=== PATIENT | female | born 1965 | race Caucasian/White ===

== ENCOUNTER 2021-03-13 12:57 | Outpatient (REF) | payer MEDICAID, SELFPAY ==
--- NOTE | ~2021-03-13 | MM_ITS ---
EXAMINATION: MM SCREENING DIGITAL BREAST TOMOSYNTHESIS, BILATERAL CLINICAL INFORMATION: Screening. Asymptomatic. Status post therapeutic aspiration cysts right breast lower inner quadrant 07/18/2019. The lifetime risk of breast cancer based on the Tyrer-Cuzick Model is 16%. COMPARISON: Mammography: 11/18/2018, 07/25/2016; ultrasound right breast 11/18/2018. TECHNIQUE: Digital mammography is performed in craniocaudal and mediolateral oblique views along with computer-aided detection (CAD). Digital breast tomosynthesis is performed in implant-displaced craniocaudal and implant-displaced mediolateral oblique views along with computer-aided detection (CAD). Synthesized 2D images are generated from the tomosynthesis. FINDINGS: There are scattered areas of fibroglandular density (ACR BI-RADS breast composition Category b). There are bilateral implants. Implant contours are smooth and similar to prior studies. Right breast fibrocystic changes lower inner quadrant are decreased from prior studies. Again, there are regional punctate calcifications in the right lower inner quadrant similar to prior studies. Neither breast shows interval significant mass or architectural abnormality or abnormal calcifications. The axilla and skin contours are unremarkable. No significant changes. MM/MM tomosynthesis screen imp BI IMPRESSION: No mammographic evidence of malignancy. ASSESSMENT: BI-RADS 2: Benign RECOMMENDATION: Routine annual mammography screening. This patient's information was entered into a reminder system with a target due date for their next mammogram.
== END 2021-03-13 12:58 | disposition home or self-care (01) ==
LOC: HO.MAMMO 12:57
PROVIDERS: Visit Provider Physician Assistant
DX: Z12.31 Encounter for screening mammogram for malignant neoplasm of breast (principal)
CPT/HCPCS: 77063; 77067

== ENCOUNTER 2022-07-03 08:46 | Outpatient (REF) | payer OTHER, SELFPAY ==
--- NOTE | ~2022-07-03 | MM_ITS ---
EXAMINATION: MM DIAGNOSTIC DIGITAL BREAST TOMOSYNTHESIS, BILATERAL Targeted right breast ultrasound. CLINICAL INFORMATION: Right breast lump medially which has been present for 7 years and is painful. Patient states that it actually appears smaller than at time of last study. The lifetime risk of breast cancer based on the Tyrer-Cuzick Model is 17.5%. COMPARISON: Mammography: 03/13/2021 and studies dating back to 06/29/2012. TECHNIQUE: Digital mammography is performed in craniocaudal and mediolateral oblique views. Digital breast tomosynthesis is performed in implant-displaced craniocaudal and implant-displaced mediolateral oblique views. Synthesized 2D images are generated from the tomosynthesis. Computer-aided detection (CAD) is performed for this exam. Right breast spot magnification views in craniocaudal and 90 degree mediolateral projections. Targeted right breast ultrasound. FINDINGS: There are scattered areas of fibroglandular density (ACR BI-RADS breast composition Category b). The implant contours are unremarkable. There is a stable parenchymal pattern of the left breast without new abnormal dominant mass or suspicious grouping of microcalcifications. Imaging of the right breast demonstrated calcifications about the medial aspect for which spot magnification views were performed. These calcifications on magnification imaging appear stable. There are multiple circumscribed densities seen in the region of palpable abnormality which are well-circumscribed. Ultrasound evaluation about the medial aspect of the right breast where patient states palpable abnormality is. Multiple simple and minimally complex cysts are present in this location with the largest measuring approximately 7 x 6 x 8 mm in size. No suspicious solid mass identified. No edematous change within the parenchyma is seen. Results are discussed with the patient at time of visit. MM/MM tomosynthesis diag imp BI IMPRESSION: 1. There are no significant changes from prior study. 2. Palpable abnormality corresponds to a region of cysts as described. ASSESSMENT: BI-RADS 2: Benign RECOMMENDATION: 1. Patient should be managed based on the clinical impression. Decision to proceed with biopsy should be based on clinical grounds and degree of clinical concern. 2. Otherwise, routine annual screening mammography. This patient's information was entered into a reminder system with a target due date for their next mammogram.
== END 2022-07-03 08:47 | disposition home or self-care (01) ==
LOC: HO.MAMMO 08:46
PROVIDERS: PCP Nurse Practitioner Family; Visit Provider Nurse Practitioner Family
DX: N64.4 Mastodynia (principal); R92.1 Mammographic calcification found on diagnostic imaging of breast
CPT/HCPCS: 76642; 77062; 77066

== ENCOUNTER → 2024-01-21 10:30 | Outpatient (BNV) | payer OTHER, SELFPAY | PROVIDERS: PCP Nurse Practitioner Family; Visit Provider Internal Medicine | DX: Z12.31 Encounter for screening mammogram for malignant neoplasm of breast (principal) | CPT/HCPCS: 77063; 77067 ==

== ENCOUNTER 2024-01-21 10:58 | Outpatient (REF) | payer OTHER, SELFPAY ==
--- NOTE | ~2024-01-21 | MM_ITS ---
EXAMINATION: MM SCREENING DIGITAL BREAST TOMOSYNTHESIS, BILATERAL CLINICAL INFORMATION: Screening. Asymptomatic. COMPARISON: Mammography: Comparison is made with relevant avialable priors. TECHNIQUE: Digital mammography is performed in craniocaudal and mediolateral oblique views along with computer-aided detection (CAD). Digital breast tomosynthesis is performed in implant-displaced craniocaudal and implant-displaced mediolateral oblique views along with computer-aided detection (CAD). FINDINGS: The breasts are heterogeneously dense, which may obscure small masses (ACR BI-RADS breast composition Category c). Bilateral retropectoral implants are stable appearing. Circumscribed oval masses medial right breast previously demonstrated to be simple cysts on ultrasound. There are no significant masses, abnormal calcifications, or other abnormalities. MM/MM tomosynthesis screen imp BI IMPRESSION: There are no significant changes from prior study. ASSESSMENT: BI-RADS BI-RADS 2 - Benign Findings RECOMMENDATION: Routine annual mammography screening. 1 year F/U This patient's information was entered into a reminder system with a target due date for their next mammogram. Electronically signed by: Mahsa Tony DO 01/21/2024 12:19 PM [facility]
== END 2024-01-21 10:59 | disposition home or self-care (01) ==
LOC: HO.MAMMO 10:58
PROVIDERS: PCP Nurse Practitioner Family; Visit Provider Nurse Practitioner Family
DX: Z12.31 Encounter for screening mammogram for malignant neoplasm of breast (principal)
CPT/HCPCS: 77063; 77067

== ENCOUNTER 2025-01-26 15:17 | Outpatient (REF) | payer OTHER, SELFPAY ==
--- OUTSIDE RECORDS SUMMARY | 2025-01-27 03:52 | XMS_ITS ---
Author Name [facility] Organization Unknown Results Test Name/Text Value Interpretation Date Range Source Glucose Bld-mCnc 112.0 mg/dL 10/05/2024 70 - 199 [facility] History of Medication Use Medication Directions Dispensed Refills Start Date End Date Stat us cephalexin (KEFLEX) 500 mg capsule Take 1 capsule (500 mg total) by mouth 4 (four) times a day for 7 days. 10/05/2024 active Allergies Allergen Reaction Severity Comment Documented Date Source Statu s MORPHINE SHORTNESS OF BREATH 03/14/2020 [facility] active Problems Problem Status Onset Date Problem Type Date of Resoluti on Source Toe pain, right active EncounterDiagnosisAct [facility] Encounters Encounter Type Encounter Reason Primary Diagnosis Location Date Emergency RIGHT FOOT TOE PAIN Pain in right toe(s) [facility] 10/05/2024 Ambulatory [facility] 04/06/2024 Care Team Organization Name Specialty Phone Email Start Date End Da te [facility] 10/06/2024 [facility] 10/05/2024 [place] 04/07/2024 [facility] 04/07/2024
--- OUTSIDE RECORDS SUMMARY | 2025-01-27 03:52 | XMS_ITS | Clinical Summary ---
Author Organization [facility] Address [address] [place] [address] Care Team Providers Care Tag Meter Operator Name Role Phone Unavailable Primary Care Provider Unavailabl e Allergies Active Allergy Reactions Criticality Noted Date Comments Morphine Shortness Of Breath High 03/14/2020 Medications Medication Sig Dispensed Refills Start Date End Date Status levothyroxine (SYNTHROID, LEVOXYL) tablet 75 mcg TAKE 1 TABLET BY MOUTH EVERY DAY IN THE MORNING 0 02/09/2020 Active estradiol (ESTRACE) 2 MG tablet Take 2 mg by mouth daily. 0 Active oxyCODONE-acetaminoph en (PERCOCET) 5-325 MG per tablet Take 1 tablet by mouth every 6 (six) hours as needed for up to 20 doses. 20 tablet 0 03/18/2020 Active Active Problems Problem Noted Date Diagnosed Date Small bowel obstruction 03/14/2020 SBO (small bowel obstruction) 03/05/2020 Immunizations Name Administration Dates Next Due Influenza Quad (Fluarix/Fluz one/FluLaval) 0.5mL (SD-IIV4) 03/09/2020 Family History Medical History Relation Name Comments Heart disease Maternal Grandmother Cancer Mother Breast cancer Heart disease Mother Relation Name Status Comments Maternal Grandmother Mother Alive Social History Tobacco Use Types Packs/Day Years Used Date Smoking Tobacco: Never Smokeless Tobacco: Never Alcohol Use Standard Drinks/Week Comments Yes 0 (1 standard drink = 0.6 oz pur e alcohol) Socially. Sex and Gender Information Value Date Recorded Sex Assigned at Female 03/05/2020 6:07 AM EST Gender Identity Female 03/05/2020 6:07 AM EST Sexual Orientation Not on file Last Filed Vital Signs Vital Sign Reading Time Taken Comments Blood Pressure 136/87 03/18/2020 9:03 AM EST Pulse 69 03/18/2020 9:03 AM EST Temperature 36.7 C (98.1 F) 03/18/2020 9:03 AM EST Respiratory Rate 18 03/18/2020 9:03 AM EST Oxygen Saturation 96% 03/18/2020 9:03 AM EST Inhaled Oxygen Concentration - - Weight 61.2 kg (134 lb 14.7 oz) 021 11:20 PM EST Height 157.5 cm (5' 2 ) 03/15/2020 9:55 AM EST Body Mass Index 24.68 03/15/2020 9:55 AM EST Plan of Treatment Health Maintenance Due Date Last Done Comments Hepatitis B Vaccines (1 of 3 - 3-dose series) 1966 Hepatitis C Screening 1966 COVID-19 Vaccine (#1) 03/03/1967 Depression Screening 1978 BMI Counseling 1984 Preventative Health Evaluation 1984 DTap / Tdap / Td (1 - Tdap) 1985 Cervical Cancer Screening (P ap Smear) 09/02/1987 Colon Cancer Screening (Colonoscopy) 09/02/2011 Breast Cancer Screening (Mammogram) 2016 Shingrix-Zoster Vaccine (1 of 2) 2016 Influenza Vaccine (#1) 2024 03/09/2020 Pneumococcal Vaccine Aged Out No long er eligible based on patient's age to complete this topic RSV Ped < 20 months Aged Out No longe r eligible based on patient's age to complete this topic Goals Goal Patient Goal Type Associated Problems Recent Progress Patient-Stated? Author Patient will be complaint with medical appointments and orders Chronic Care Management No Peyman Kwong RN Patient will adhere to treatment plan Chronic Care Management No Peyman Kwong RN Advance Directives For more information, please contact: [phone] Latest Code Status on File Code Status Date Activated Date Inactivated Comments Full Code 03/15/2020 11:11 AM 03/18/2020 9:04 PM This c ode status was ascertained in the following way: discussion with patient . Code Status History Code Status Date Activated Date Inactivated Comments Full Code 03/14/2020 11:21 AM 03/15/2020 11:11 AM This code status was ascertained in the following way: discussion with patient . Full Code 03/05/2020 12:31 PM 03/09/2020 7:47 PM Th is code status was ascertained in the following way: discussed .
--- OUTSIDE RECORDS SUMMARY | 2025-01-27 03:52 | XMS_ITS | Clinical Summary ---
Author Organization [facility] Address [address] [address] Phone Care Team Providers Care Measurement Advisor Name Role Phone Tab Mojica MD Unavailable [phone] Karen Qiu NP Primary Care Provider Allergies No known active allergies Medications ferrous sulfate (IRON ORAL) Take by mouth daily. Active neomycin-polymy shruthi B-hydrocortison e (CORTOMYCIN) 3.5-10,000-1 mg/mL-unit/mL-% otic suspension 3 drops by Each Ear route 4 (four) times a day. 10 mL 1 2 Active Additional Information Patient not taking.Reported on 03/15/2022 levothyroxine (SYNTHROID, LEVOTHROID) 75 MCG tabletIndicatio ns:Hypothyroidi sm, unspecified type Take 1 tablet (75 mcg total) by mouth every morning. 90 tablet 3 2 Active fluorouraciL (EFUDEX) 5 % cream Efudex 5 % topical cream APPLY TO NOSE STARTING TWICE A WEEK INCREASING TO TWICE A DAY TOLERATED Active triamcinolone acetonide 0.1 % cream triamcinolone acetonide 0.1 % topical cream APPLY TO CHEST TWICE A DAY NEEDED FOR ITCHING Active estradioL (ESTRACE) 1 MG tablet estradiol 1 mg tablet TAKE 1 TABLET BY MOUTH EVERY DAY Active ALPRAZolam (XANAX) 0.5 MG tabletIndicatio ns:Anxiety 1-2 times Daily as needed 45 tablet 2 Active diazoxide (PROGLYCEM) 50 mg/mL suspensionIndic ations:Hypoglyc emia Take 2 mL (100 mg total) by mouth every 12 (twelve) hours. 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 I did discuss other possible options such as Arcabose, and octreotide but octreotide is not a very good choice. I would prefer to use diazoxide first. Based on her body weight using 2 mg every 12 hours she should be taking approximately 26 mL which is less than an ounce. She states that she only has symptoms after dinner possibly because is her biggest meal. I advised her to take it 1 hour prior to the meal. I did review that this medication action time usually is 1 hour in order to increase the glucose levels. I did inform her that it works by inhibiting insulin secretion. I did reviewed that is not associated with weight gain. If the medication does not work within 3 weeks then it should be discontinued but my feeling is that she is only going to be using it once a day and if is not working she should possibly increase it to twice a day or possibly increase the dose we started at a very small dose 2 mg/kg and can go up anywhere up to 15 mg/kg. I will give the patient a follow-up appointment in 3 months time. However she can contact me through the patient portal if she has any questions or concerns. Assessment & Plan (03/05/2022 5:55 PM EST): This patient reports postprandial hypoglycemia. Fasting lab work shows that she does not have fasting hyperglycemia but has suppressed levels of insulin, proinsulin with normal reference range C-peptide. This can be associated with the use of analog insulin administration. However our insulin assay does not measure analog insulin so I cannot confirm or disprove this possibility. Unfortunately there are so many variables that makes this case quite complex. For instance the glucose tolerance assay that was used was not ideal. The tubes using glucose collection can still result in red blood cell digestion of glucose which can result in low glucose levels. It does not help that the specimens were run 6 hours after collection. However, the patient states that she was symptomatic after completing the study. So if this is truly the case then I will say that the patient has early functional alimentary hypoglycemia. The treatment is small frequent meals with high complex carbohydrates and protein intake with elimination of simple sugars and fructose. However the patient states that she is already doing this. The symptoms of hypoglycemia and this type of condition can be distressing but they are not typically dangerous. I suggested to the patient that she can try diazoxide to see if it does improve symptoms. If it does not improve her symptoms of hypoglycemia then the best thing to do is to continue what she is currently doing. Feared complaint without diagnosis 09/07/2021 Assessment & Plan (02/05/2022 9:32 AM EST): The patient has symptoms of hypoglycemia but I did not find any evidence based on the biochemical studies that I did. Even the glucose tolerance test did not show hypoglycemia or for that matter hyperglycemia which was what I was actually looking for because I expected the reasons for hypoglycemia to be hyperinsulinemia in cases of patients with prediabetes. But this does not seem to be the case. In any case she would like to have a 3-hour glucose tolerance test and I requested this. I have not given her follow-up appointment if there is any issues then we can communicate through patient portal and reschedule if required. Assessment & Plan (09/07/2021 11:25 AM EDT): This is a patient develops drowsiness, exhaustion, near loss of consciousness for an hour to 1 hour after eating. Could she be producing too much insulin in response to glucose. Point I will get baseline lab work. I am also going to request glucose tolerance test and I am requesting insulin level at baseline then 1 hour and 2 hours after to see if there is an elevated insulin level which we should see after glucose administration but I would like to see what the glucose level is after eating to see if she is developing hypoglycemia. Encounter for routine adult health examination with abnormal findings 04/24/2021 Assessment & Plan (04/24/2021 6:55 AM EST): Pap: no longer indicated s/p hysterectomy Mammogram: utd per pt. Will request most recent results from [facility] Cscope: utd per pt. Completed about 2 yrs ago at [facility]. Will request records Labs: cbc/cmp/a1c/lipids/tsh ordered Immunizations: tdap given today. Next due 2031. Declines flu shot. Follow up annually for CPE Skin lesion 04/24/2021 Assessment & Plan (04/24/2021 6:57 AM EST): New problem. Developed non healing ulcer of the nose and chest after sunburn this past summer. Features concerning for BCC. -will place urgent referral to [facility]. 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 Doing well since the surgery and feels her GI symptoms have resolved Hypothyroidism 09/12/2019 Assessment & Plan (04/24/2021 6:49 AM EST): Chronic and stable. euthymic on 75mcg of levothyroxine -recheck TSH Assessment & Plan (02/09/2020 3:57 PM EST): Clinically hypothyroid with TSH of 3.07. reviewed proper way of taking medication. Feel a lot of her symptoms (joint pain, fatigue, hair loss, dry skin, constipation) may be 2/2 hypothyroidism. -will do trial of increasing levothyroxine to 75mcg daily. -reviewed sx of hyperthyroidism and that she should call if present -recheck TSH in 6-8 weeks and she agrees with plan. Assessment & Plan (09/12/2019 5:13 PM EDT): Clinically hypothyroid and has been >1 year since last had her TSH checked -labs ordered Polyarthralgia 09/12/2019 Assessment & Plan (02/09/2020 3:59 PM EST): Pain in the hips, shoulders, knees, fingers and toes along with some bone pain along both upper arms. Negative RF and KAITLYNN, crp slightly elevated. -will do trial of increasing levothyroxine. Will recheck TSH with PTH in 6-8 weeks -will refer to rheumatology for further evaluation of possible arthritis vs fibromyalgia Assessment & Plan (09/12/2019 5:12 PM EDT): Pain in the hips, shoulders, fingers and toes along with some bone pain along both upper arms. -will order labs to eval for metabolic cause including possibly hyperparathyroidism given the bone pain -would also consider referral to rheumatology pending those lab results and she agrees with this plan Fatigue 09/12/2019 Assessment & Plan (09/12/2019 5:14 PM EDT): -Will order labs to check for metabolic causes -will also refer to sleep medicine given chronicity and she has never had evaluation previously. Anxiety 09/12/2019 Assessment & Plan (04/24/2021 6:53 AM EST): Chronic and stable. Had previously been following with psychiatrist in [place].. Masspat checked and is congruent with history. -will refill her alprazolam 0.5mg. taking 1/2 tab po 1-2x daily Assessment & Plan (09/12/2019 5:17 PM EDT): Following with psychiatrist in [place]. Masspat checked and is congruent with history. Confirmed previous script and patient has been trying to get refills through psychiatrists office. -will refill her xanax 0.5mg po daily prn today -she will plan to follow up with her psychiatrist when able Ear discharge of both ears 09/12/2019 Assessment & Plan (02/09/2020 3:57 PM EST): Will do trial of cortisporin QID in both ears for the next week for suspected otitis externa. Assessment & Plan (09/12/2019 5:18 PM EDT): Unfortunately, we did not have a chance to address this concern today. 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 Reports syncope on several occasions. lowest glucose measured in the ED was 13. Discussed continuing to avoid foods with large amounts of simple sugars and agree with referral to endocrinology to w/u other causes -referral to Dr. Sandhu placed Menopausal syndrome 07/29/2019 Assessment & Plan (04/24/2021 6:52 AM EST): Chronic and improved with oral estradiol -continues to follow with Madhavi SAINZ for mgmt Assessment & Plan (09/12/2019 5:16 PM EDT): Following with Dr. Maldonado for mgmt of estrogen. Did review his most recent note that had wanted to wait prior to ordering further tests but will reach out to see if he is ok to add progesterone and testosterone labs as requested by patient. Urinary incontinence due to urethral sphincter i ncompetence 01/12/2018 Hemorrhoid 01/12/2018 Lack of sexual fulfillment 01/12/2018 Complication of procedure 01/12/2018 Overview (01/12/2018): Nerve damage to upper vagina and bladder following total hysterectomy Immunizations Immunization Administration Dates Next Due INFLUENZA, SPLIT VIRUS, TRIV ALENT W/ PRESERVATIVE IM 05/18/2019,01/03/2017,02/28/2016,2015,12/08/2009,08/22/2009 Influenza Quadrivalent Prese rvative Free IM 03/09/2020 Tdap 04/23/2021,03/21/2011,03/10/2011 Tetanus toxoid, unspecified formulation 08/22/2004 Family History Medical History Relation Comments Breast cancer Mother Relation Status Comments Father Maternal Grandfather Maternal Grandmother Mother Alive Social History Tobacco Use Types Packs/Day Years Used Date Smoking Tobacco: Former Cigarettes 0.3 11 1 978 - 1989 Smokeless Tobacco: Never Tobacco Cessation:Counseling Given: Not Answered Alcohol Use Standard Drinks/Week Comments Yes 0 (1 standard drink = 0.6 oz pur e alcohol) socially Child or Family Care Answer Date Record ed Do you have problems with on e of the following making it difficult for you to work, study, or receive health care? No 04/23/2021 Education Answer Date Recorded Are you interested in more education? Not on yohannes e 05/06/2023 Are you concerned about learning? Not on file 05/06/2023 No 05/06/2023 No 05/06/2023 Food Answer Date Recorded Within the past 6 months we worried whether our food would run out before we got money to buy more. Never True 04/23/2021 Within the past 6 months the food we bought just didn't last and we didn't have enough money to get more. Never True Residential Stability Answer Date Recor ded What is your housing situation today? I have ash melissa 04/23/2021 How many times have you move d in the past 12 months? Zero (I did not move) 04/23/2021 Paying for Meds Answer Date Recorded Do you have trouble paying for medicines? No 04/23/2021 Paying Utility Bills Answer Date Record ed Do you have trouble paying your heating or elect ricity bill? Yes 04/23/2021 Transportation Answer Date Recorded Has the lack of transportati on kept you from medical appointments or from getting medications? No 04/23/2021 Unemployment Answer Date Recorded Are you currently unemployed or working on a part-time or temporary basis, and looking for work? No 04/23/2021 Digital Access Answer Date Recorded No 08/06/2022 No 08/06/2022 Reliable internet access at home? Not on file 08/06/2022 Device with a working camera? Not on file Comments Unknown Sex and Gender Information Value Date Recorded Sex Assigned at Female 07/27/2019 2:57 PM EDT Legal Sex Female 10:04 AM EDT Gender Identity Female 07/27/2019 2:57 PM EDT Sexual Orientation Straight 07/27/2019 2: 57 PM EDT Last Filed Vital Signs Vital Sign Reading Time Taken Comments Blood Pressure 133/89 01/27/2024 9:59 AM EST Pulse 63 01/27/2024 9:59 AM EST Temperature 36.4 C (97.5 F) 04/23/2021 11:06 AM EST Respiratory Rate - - Oxygen Saturation 100% 02/05/2022 9:01 AM EST Inhaled Oxygen Concentration - - Weight 58.9 kg (129 lb 12.8 oz) 01/27/2024 9:59 AM EST Height 156.2 cm (5' 1.5 ) 01/27/2024 9:59 AM EST Body Mass Index 24.13 01/27/2024 9:59 AM EST Plan of Treatment Health Maintenance Due Date Last Done Comments SMOKING Hx and SMOKELESS TOBACCO SCREENING 09/02/1979 HEPATITIS C SCREENING 1984 HIV ONE-TIME SCREENING (18-65 YEARS) 1984 MAMMOGRAM 2006 COLOGUARD 09/02/2011 FIT TEST 09/02/2011 FOBT 09/02/2011 SIGMOIDOSCOPY 09/02/2011 VIRTUAL COLONOSCOPY 09/02/2011 PNEUMOCOCCAL VACCINES (50+ years) (1 of 1 - PCV) 2016 ZOSTER VACCINES (1 of 2) 2016 TSH LEVEL 04/17/2021 04/17/2020, 12/27/2019 DEPRESSION SCREENING 04/23/2022 04/23/2021 INFLUENZA VACCINE (#1) 2024 0, 05/18/2019, 01/03/2017, Additional history exists COVID-19 VACCINE ( - 2024- season) 2024 10/05/2020 LIPID PANEL 12/26/2024 12/27/2019, 12/08, 05/19/2019, Additional history exists COLONOSCOPY 02/10/2028 02/09/2018 COLORECTAL CANCER SCREENING 02/10/2028 Adult Td,Tdap Booster 04/23/2031 04/23/2021 , 03/21/2011, 03/10/2011 RSV VACCINE (1 - 1-dose 75+ series) 2041 HEPATITIS A VACCINES Aged Out No long er eligible based on patient's age to complete this topic HIB VACCINES Aged Out No longer eligi ble based on patient's age to complete this topic MENINGOCOCCAL VACCINES (ACWY) Aged Out No longer eligible based on patient's age to complete this topic MENINGOCOCCAL VACCINES (B) Aged Out N o longer eligible based on patient's age to complete this topic Medical Devices Not on file Procedures Procedure Name Priority Date/Time Associated Diagnosis Comments THYROID STIMULATING HORMONE (TSH) Routine 04/17/2020 3:34 PM EST Hypothyroidism, unspecified type LIPID PANEL Routine 12/27/2019 2:13 PM EDT Hypothyroidism, unspecified type HM COLONOSCOPY FOR RESULT ENTRY ONLY Routine 02/09/2018 from Last 3 Months or Most Recently Relevant to Health Maintenance Results * TSH (04/17/2020 3:34 PM EST) TSH 1.66 0.27 - 4.20 uIU/mL [facility] Blood 04/17/2020 3:34 PM EST 04/17/2020 3:38 PM EST us [facility] BLOOD BKR ORDERAB LES Final Result Performing Organization Address City/State/[facility] [[email or web address]] Co de Phone Number [address] [address] * (ABNORMAL) Lipid panel (12/27/2019 2:13 PM EDT) HDL 88 mg/dL [facility] Comment: Interpretation <40 mg/dL: Low HDL cholesterol (major risk factor for CHD) Greater than or equal to 60 mg/dL: High HDL cholesterol ( negative risk factor for CHD) HDL - cholesterol is affected by a number of factors, e.g. smoking, excerise, hormones, sex and age. CHOLESTEROL 183 0 - 240 mg/dL [facility] TRIGLYCERIDES 119 30 - 160 mg/dL [facility] LDL 71 50 - 129 mg/dL [facility] Comment: LDL levels in terms of risk for coronary heart disease: <100 mg/dL: Optimal 100-129 mg/dL: Near or above optimal 130-159 mg/dL: Borderline high 160-189 mg/dL: High >190 mg/dL: Very High CARDIAC RISK RATIO 2.1(L) 3.3 - 4.4 C [facility] Blood 12/27/2019 2:13 PM EDT 12/27/2019 2:19 PM EDT us [facility] BLOOD BKR ORDERAB LES Final Result [facility] [address] [place] [address] * COLONOSCOPY FOR RESULT ENTRY ONLY (02/09/2018) HM Colonoscopy [facility] us Historical Provider MD HEALTH MAINTENANCE Final Result from Last 3 Months or Most Recently Relevant to Health Maintenance Insurance [facility] [employer] [facility] ACO [facility] [employer] [facility] Care Teams Measurement Advisor Relationship Specialty Start Date End Date Karen Qiu NP [address] [place] [address] PCP - General Nurse Practitioner 07/26/22 Tab Mojica MD [address] [facility] [place] [address] [email or web address] Insurance Assigned Provider Internal Medicine 09/08/19 Additional Source Comments The information contained in this document represents components of the legal health record. It is not the complete legal health record.[facility]
== END 2025-01-26 15:18 | disposition home or self-care (01) ==
LOC: HO.MAMMO 15:17
PROVIDERS: PCP Nurse Practitioner Family; Visit Provider Nurse Practitioner Family
DX: Z13.89 Encounter for screening for other disorder (principal)